=== PATIENT | female | born 1940 | race Caucasian/White ===

== ENCOUNTER → 2017-11-27 | Outpatient (CLI) | payer MEDICARE ==
[~2017-11-27] MED LIST: ACET-1600 PO; LISI-167 PO; OXYC5CAP2 PO
[2017-11-27 11:02] LABS: ALANINE AMINOTRANSFERASE 23 U/L (12-78); ALBUMIN 4.3 g/dL (3.4-5.0); ANION GAP 6 mmol/L (5-15); CHLORIDE 102 mmol/L (98-107); CREATININE 0.61 mg/dL (0.55-1.02)
[2017-11-27 11:05] LABS: ALKALINE PHOSPHATASE 98 U/L (45-117); BILIRUBIN,TOTAL 0.4 mg/dL (0.2-1.0); TOTAL PROTEIN 7.8 g/dL (6.4-8.2)
== END | disposition home or self-care (01) ==
LOC: STAR 09:39
PROVIDERS: ATTEND Orthopaedic Surgery
DX: Z01.818 Encounter for other preprocedural examination (principal); R94.31 Abnormal electrocardiogram [ECG] [EKG]; M19.072 Primary osteoarthritis, left ankle and foot; M25.572 Pain in left ankle and joints of left foot
CPT/HCPCS: 36415; 80053; 93005

== ENCOUNTER 2017-12-08 09:15 | Inpatient (IN) | payer MEDICARE ==
[~2017-12-08] VITALS: Ht 154.9 cm; Wt 55.0 kg
[~2017-12-08 09:15] MED LIST changes: -ACET-1600 PO; -OXYC5CAP2 PO
[2017-12-08 11:02] VITALS: BP 152/83
[2017-12-08] MEDS ORDERED: LACTATED RINGERS 1,000 ML IV SCH (11:07)
[2017-12-08] MEDS ORDERED: ACET-1600 PO (11:08)
[2017-12-08] MEDS ORDERED: MIDAZOLAM 1 MG/ML, 2ML ONE (11:44)
[2017-12-08] MEDS ORDERED: FENTANYL PF 250 MCG/5ML ONE (11:44)
[2017-12-08] MEDS ORDERED: FENTANYL PF 100 MCG/2ML IV PRN (12:00)
[2017-12-08] MEDS ORDERED: ONDANSETRON 2MG/ML, 2ML IVPush PRN (12:00)
[2017-12-08] MEDS ORDERED: HYDROmorphone 1 MG/ML, 1ML IV PRN (12:00)
[2017-12-08] MEDS ORDERED: hydrALAzine 20 MG/ML, 1ML IV PRN (12:00)
[2017-12-08] MEDS ORDERED: EPHEDRINE 50 MG/ML, 1ML IVPush PRN (12:00)
[2017-12-08] MEDS ORDERED: ALBUTEROL SULFATE 2.5 MG/3 ML NPPB PRN (12:00)
[2017-12-08] MEDS ORDERED: OXYcodone 5 MG/5 ML ORAL.SOL UDC PO PRN (12:00)
[2017-12-08] MEDS ORDERED: METOPROLOL 1 MG/ML, 5ML IV PRN (12:00)
[2017-12-08] MEDS ORDERED: PROMETHAZINE 25 MG/ML, 1ML IV PRN (12:00)
[2017-12-08] MEDS ORDERED: LABETALOL 5MG/ML, 20ML IV PRN (12:00)
[2017-12-08] MEDS ORDERED: ROPIvacaine/PF 0.2%, 100ML 400 ML in BAG 1 EACH INJ ONE (14:00)
[2017-12-08] MEDS ORDERED: PROPOFOL 10 MG/ML, 20ML ONE ×3 (14:02→14:03)
[2017-12-08] MEDS ORDERED: ROCURONIUM 10 MG/ML,10ML ONE (14:03)
[2017-12-08] MEDS ORDERED: DEXAMETHASONE 4 MG/ML, 1ML ONE ×2 (14:03)
[2017-12-08] MEDS ORDERED: ONDANSETRON 2MG/ML, 2ML ONE (14:03)
[2017-12-08] MEDS ORDERED: CEFAZOLIN 1,000 MG ONE (14:03)
[2017-12-08] MEDS ORDERED: FENTANYL PF 100 MCG/2ML ONE (16:19)
[2017-12-08 18:40] VITALS: BP 117/66
[2017-12-08] MEDS ORDERED: ACETAMINOPHEN 500 MG TABLET PO PRN (20:00)
[2017-12-08] MEDS ORDERED: morphine SULFATE 10 MG/ML, 1ML IV PRN (20:00)
[2017-12-08] MEDS ORDERED: ONDANSETRON 2MG/ML, 2ML IV PRN (20:00)
[2017-12-08] MEDS ORDERED: SENNA/DOCUSATE TABLET PO PRN (20:00)
[2017-12-08] MEDS ORDERED: BISACODYL 10 MG SUPP PR PRN (20:00)
[2017-12-08] MEDS ORDERED: OXYcodone/APAP 5/325MG TABLET PO PRN (20:00)
[2017-12-08] MEDS: DOCUSATE 100 MG CAPSULE PO SCH (21:22)
[2017-12-08] MEDS: SODIUM CHLORIDE FLUSH 10ML SYR IVF SCH (21:22)
[2017-12-08] MEDS: CEFAZOLIN PMX 1GM/50ML 50 ML IVPB SCH (21:22)
[2017-12-09 00:03] VITALS: BP 100/57
[2017-12-09] MEDS: DIPHENHYDRAMINE 25 MG CAPSULE PO PRN ×2 (01:20→02:07)
[2017-12-09 04:02] VITALS: BP 98/52
[2017-12-09] MEDS: CEFAZOLIN PMX 1GM/50ML 50 ML IVPB SCH (05:21)
[2017-12-09 07:15] VITALS: BP 109/55
[2017-12-09] MEDS: SODIUM CHLORIDE FLUSH 10ML SYR IVF SCH (09:00)
[2017-12-09] MEDS ORDERED: LISINOPRIL 10 MG TABLET PO SCH (09:00)
[2017-12-09] MEDS: DOCUSATE 100 MG CAPSULE PO SCH (10:09)
[2017-12-09] MEDS ORDERED: OXYC5CAP2 PO (10:33)
[2017-12-09 10:57] VITALS: BP 120/55
== END 2017-12-09 12:02 | disposition home or self-care (01) | DRG 494 ==
LOC: ORIP 09:15 → 4NOR 19:21
PROVIDERS: ADMIT Orthopaedic Surgery; ATTEND Orthopaedic Surgery
PROC: 0SGJ07Z Fusion of Left Tarsal Joint with Autologous Tissue Substitute, Open Approach (ICD-10-PCS; 2017-12-08)
PROC: 0L8P3ZZ Division of Left Lower Leg Tendon, Percutaneous Approach (ICD-10-PCS; 2017-12-08)
PROC: 0SPG0JZ Removal of Synthetic Substitute from Left Ankle Joint, Open Approach (ICD-10-PCS; 2017-12-08)
PROC: 0SGG07Z Fusion of Left Ankle Joint with Autologous Tissue Substitute, Open Approach (ICD-10-PCS; principal; 2017-12-08 15:45)
DX: T84.89XA Other specified complication of internal orthopedic prosthetic devices, implants and grafts, initial encounter (principal); Y79.2 Prosthetic and other implants, materials and accessory orthopedic devices associated with adverse incidents; Y92.89 Other specified places as the place of occurrence of the external cause
CPT/HCPCS: 76001; 87070; 87075; 87176; 87205; C1713; J0690; J1100; J2250; J2405; J2704; J2795; J3010; C1762; C1769; J7120; Q0163